=== PATIENT | female | born 1970 | race Caucasian/White ===

== ENCOUNTER 2017-03-22 16:43 | Inpatient (IN) | payer MEDICAID ==
[~2017-03-22] VITALS: Ht 152.4 cm; Wt 100.9 kg
[2017-03-22] MEDS ORDERED: MECLIZINE CHEWABLE 25 MG TAB PO ONE (17:00)
[2017-03-22 17:37] LABS: BLOOD UREA NITROGEN 29 mg/dL (7-18)
[2017-03-22] MEDS ORDERED: MECLIZINE CHEWABLE 25 MG TAB ONE ×2 (19:24→19:25)
[2017-03-22] MEDS ORDERED: SODIUM CHLORIDE 0.9% 1,000ML IVBOLUS ONE (20:00)
[2017-03-22] MEDS ORDERED: SODIUM CHLORIDE FLUSH 10ML SYR IVF ONE (20:00)
[2017-03-22 20:10] LABS: IS PT STATUS REG ER OR PRE ER? YES
[2017-03-22] MEDS ORDERED: INSU100I34 SQ (20:44)
[2017-03-22] MEDS ORDERED: ATOR40TA PO (20:44)
[2017-03-22] MEDS ORDERED: DULO60CA7 PO (20:44)
[2017-03-22] MEDS ORDERED: NAPR500T3 PO (20:44)
[2017-03-22] MEDS ORDERED: GABA300C10 PO (20:44)
[2017-03-22] MEDS ORDERED: METF10002 PO (20:44)
[2017-03-22] MEDS ORDERED: LOSA1TAB16 PO (20:44)
[2017-03-22] MEDS ORDERED: morphine SULFATE 10 MG/ML, 1ML IVPush PRN (21:30)
[2017-03-22] MEDS ORDERED: ACETAMINOPHEN 325 MG TABLET PO PRN (21:30)
[2017-03-22] MEDS ORDERED: BISACODYL 10 MG SUPP PR PRN (21:30)
[2017-03-22] MEDS ORDERED: POLYETHYLENE GLYCOL 17 GM PACKET PO PRN (21:30)
[2017-03-22] MEDS ORDERED: HYDROcodone/APAP 5/325 TABLET PO PRN (21:30)
[2017-03-22] MEDS ORDERED: DIAZEPAM 5 MG/ML, 2ML IV PRN (21:30)
[2017-03-22] MEDS ORDERED: ENALAPRILAT 1.25 MG/ML, 2ML IVPush PRN (21:30)
[2017-03-22] MEDS ORDERED: ONDANSETRON 2MG/ML, 2ML IVPush PRN (21:30)
[2017-03-22] MEDS ORDERED: DOCUSATE 100 MG CAPSULE PO PRN (21:30)
[2017-03-22] MEDS ORDERED: MECLIZINE CHEWABLE 25 MG TAB PO PRN (21:30)
[2017-03-22] MEDS ORDERED: ENOXAPARIN 40 MG/0.4 ML ONE (22:04)
[2017-03-22] MEDS: ENOXAPARIN 40 MG/0.4 ML SQ SCH (22:19)
[2017-03-22 23:55] LABS: IS PT STATUS REG ER OR PRE ER? YES
[2017-03-23] MEDS: SODIUM CHLORIDE 0.9% 1,000 ML IV SCH ×2 (04:00→23:30)
[2017-03-23 06:08] LABS: BLOOD UREA NITROGEN 24 mg/dL (7-18)
[2017-03-23 06:12] LABS: IS PT STATUS REG ER OR PRE ER? YES
[2017-03-23 07:30] VITALS: BP 147/89
[2017-03-23] MEDS: GABAPENTIN 300 MG CAPSULE PO SCH ×3 (11:08→23:36)
[2017-03-23] MEDS: DULOXETINE 30 MG CAPSULE.DR PO SCH (11:08)
[2017-03-23 11:30] VITALS: BP 147/89
[2017-03-23] MEDS ORDERED: GADOBUTROL 10 MMOL/10 ML PFS ONE (13:41)
[2017-03-23] MEDS ORDERED: NICOTINE 7 MG/24 HR PATCH.TD24 TD SCH (14:30)
[2017-03-23 15:50] VITALS: BP_SYST 141; BP_SYST 147; BP_SYST 164; BP_DIAS 108; BP_DIAS 75; BP_DIAS 98
[2017-03-23] MEDS: INSULIN ASPART 100 UNITS/ML, PEN SQ-INSULIN SCH ×2 (18:23→21:00)
[2017-03-23 19:12] VITALS: BP 144/88
[2017-03-23] MEDS ORDERED: ATORVASTATIN 40 MG TABLET PO SCH (21:00)
[2017-03-23] MEDS: MECLIZINE CHEWABLE 25 MG TAB PO SCH (23:36)
[2017-03-23] MEDS: ENOXAPARIN 40 MG/0.4 ML SQ SCH (23:37)
[2017-03-24 01:19] VITALS: BP_SYST 143; BP_SYST 151; BP_SYST 154; BP_DIAS 40; BP_DIAS 92; BP_DIAS 97
[2017-03-24 08:25] VITALS: BP_SYST 147; BP_SYST 154; BP_SYST 164; BP_DIAS 108; BP_DIAS 95; BP_DIAS 99
[2017-03-24] MEDS ORDERED: LOSARTAN 25MG TABLET PO SCH (09:00)
[2017-03-24] MEDS ORDERED: HYDROCHLOROTHIAZIDE 12.5 MG CAPSULE PO SCH (09:00)
[2017-03-24] MEDS ORDERED: MECL-85 PO (09:02)
[2017-03-24] MEDS: GABAPENTIN 300 MG CAPSULE PO SCH (10:07)
[2017-03-24] MEDS: DULOXETINE 30 MG CAPSULE.DR PO SCH (10:07)
[2017-03-24] MEDS: MECLIZINE CHEWABLE 25 MG TAB PO SCH (10:08)
[2017-03-24] MEDS: INSULIN ASPART 100 UNITS/ML, PEN SQ-INSULIN SCH (10:17)
== END 2017-03-24 13:05 | disposition home or self-care (01) | DRG 74 ==
LOC: ED 20:44 → EDIP 21:04 → 4WST 03-23 07:14 → DCLOUNGE 03-24 12:27
PROVIDERS: ADMIT Internal Medicine; ATTEND Internal Medicine
DX: G90.8 Other disorders of autonomic nervous system (principal); E44.0 Moderate protein-calorie malnutrition; Z68.41 Body mass index [BMI] 40.0-44.9, adult; R55 Syncope and collapse; R07.89 Other chest pain; E78.5 Hyperlipidemia, unspecified; I11.9 Hypertensive heart disease without heart failure; E11.42 Type 2 diabetes mellitus with diabetic polyneuropathy; E11.65 Type 2 diabetes mellitus with hyperglycemia; E03.9 Hypothyroidism, unspecified; I25.10 Atherosclerotic heart disease of native coronary artery without angina pectoris; F17.210 Nicotine dependence, cigarettes, uncomplicated; Z79.4 Long term (current) use of insulin; Z98.51 Tubal ligation status; Z88.1 Allergy status to other antibiotic agents
CPT/HCPCS: 36415; 70450; 70553; 71010; 80048; 80061; 82010; 82040; 82962; 83036; 83735; 84439; 84443; 84484; 85025; 93005; 93306; 93880; 99285; A9585; J1650; J1815; J7030

== ENCOUNTER 2017-08-01 13:18 | Inpatient (IN) | payer MEDICAID ==
[~2017-08-01] VITALS: Ht 152.4 cm; Wt 110.1 kg
[~2017-08-01 13:18] MED LIST: ATOR40TA PO; DULO60CA7 PO; GABA300C10 PO; INSU100I34 SQ; LOSA1TAB19 PO; MECL-85 PO; METF10002 PO; NAPR500T4 PO
[2017-08-01] MEDS ORDERED: SODIUM CHLORIDE 0.9% 1,000ML IVBOLUS ONE ×2 (14:00→19:30)
[2017-08-01] MEDS ORDERED: SODIUM CHLORIDE FLUSH 10ML SYR IVF ONE (14:00)
[2017-08-01] MEDS ORDERED: MORPHINE SULFATE 4 MG/ML, 1ML IVPush PRN (14:00)
[2017-08-01] MEDS ORDERED: ONDANSETRON 2MG/ML, 2ML IVPush ONE (14:00)
[2017-08-01 14:21] LABS: HEMATOCRIT 38.5 % (34.6-47.8); HEMOGLOBIN 12.7 g/dL (11.7-16.4); WHITE BLOOD COUNT 24.8 x10^3/uL (3.4-10)
[2017-08-01 14:31] LABS: BLOOD UREA NITROGEN 27 mg/dL (7-18)
[2017-08-01 14:45] LABS: DIFF TOTAL CELLS COUNTED 100 CELL DIFF
[2017-08-01] MEDS ORDERED: morphine SULFATE 10 MG/ML, 1ML ONE (14:59)
[2017-08-01] MEDS ORDERED: ONDANSETRON 2MG/ML, 2ML ONE (15:00)
[2017-08-01 15:19] LABS: VERIFY COUNTS? YES
[2017-08-01] MEDS ORDERED: CEFTRIAXONE PMX 2GM/50ML 50 ML IV ONE (16:00)
[2017-08-01] MEDS ORDERED: SODIUM CHLORIDE 0.9% 1,000 ML IV ONE (16:00)
[2017-08-01] MEDS ORDERED: CEFTRIAXONE PMX 2GM/50ML 50 ML ONE (16:19)
[2017-08-01] MEDS ORDERED: ACETAMINOPHEN 500 MG TABLET ONE (16:54)
[2017-08-01] MEDS ORDERED: ACETAMINOPHEN 500 MG TABLET PO ONE (17:00)
[2017-08-01] MEDS ORDERED: ONDANSETRON ODT 4 MG PO PRN (17:30)
[2017-08-01] MEDS ORDERED: PROMETHAZINE 25 MG/ML, 1ML IM PRN (18:00)
[2017-08-01] MEDS: CEFTRIAXONE PMX 2GM/50ML 50 ML IV SCH (18:11)
[2017-08-01 18:51] VITALS: BP 84/56
[2017-08-01] MEDS: ATORVASTATIN 40 MG TABLET PO SCH (20:24)
[2017-08-01] MEDS: SODIUM CHLORIDE 0.9% 1,000 ML IV SCH (20:24)
[2017-08-01] MEDS: HEPARIN 5,000 UNITS/ML, 1ML SQ SCH (20:24)
[2017-08-01] MEDS: GABAPENTIN 300 MG CAPSULE PO SCH (20:24)
[2017-08-01] MEDS: morphine SULFATE 10 MG/ML, 1ML IVPush PRN (20:31)
[2017-08-01 21:05] VITALS: BP 98/66
[2017-08-01] MEDS: INSULIN ASPART 100 UNITS/ML, PEN SQ-INSULIN SCH (21:23)
[2017-08-01] MEDS: INSULIN DETEMIR 100 UNITS/ML, PEN SQ-INSULIN SCH (21:23)
[2017-08-01] MEDS ORDERED: FLU VACC QS2017-18 (36MOS+) UP/PF 0.5 ML IM-VACC ONE (22:30)
[2017-08-01] MEDS ORDERED: PNEUMOCOCCAL 23 VACCINE IM-VACC ONE (22:30)
[2017-08-01 23:36] VITALS: BP 100/64
[2017-08-02 03:27] VITALS: BP 100/64
[2017-08-02 03:37] VITALS: BP 93/58
[2017-08-02] MEDS: HEPARIN 5,000 UNITS/ML, 1ML SQ SCH ×3 (04:42→17:36)
[2017-08-02] MEDS: HYDROcodone/APAP 5/325 TABLET PO PRN ×2 (04:47→09:53)
[2017-08-02] MEDS: SODIUM CHLORIDE 0.9% 1,000 ML IV SCH ×4 (06:10→21:10)
[2017-08-02 06:12] LABS: HEMATOCRIT 29.4 % (34.6-47.8)
[2017-08-02 06:22] LABS: ASPARTATE AMINO TRANSFERASE 8 U/L (15-37); BLOOD UREA NITROGEN 37 mg/dL (7-18)
[2017-08-02 06:28] LABS: DIFF TOTAL CELLS COUNTED 100 CELL DIFF
[2017-08-02 06:31] LABS: VERIFY COUNTS? YES
[2017-08-02 07:27] VITALS: BP 94/63
[2017-08-02] MEDS: DULOXETINE 30 MG CAPSULE.DR PO SCH ×2 (09:00→09:53)
[2017-08-02] MEDS: GABAPENTIN 300 MG CAPSULE PO SCH ×5 (09:00→21:00)
[2017-08-02] MEDS: INSULIN ASPART 100 UNITS/ML, PEN SQ-INSULIN SCH ×4 (09:54→22:46)
[2017-08-02] MEDS: ONDANSETRON 2MG/ML, 2ML IVPush PRN ×2 (10:04→18:24)
[2017-08-02] MEDS ORDERED: SODIUM CHLORIDE 0.9% 1,000ML IVBOLUS ONE (12:00)
[2017-08-02 15:10] VITALS: BP 98/65
[2017-08-02] MEDS: CEFTRIAXONE PMX 2GM/50ML 50 ML IV SCH (18:24)
[2017-08-02 19:44] VITALS: BP 93/56
[2017-08-02] MEDS: ATORVASTATIN 40 MG TABLET PO SCH (21:00)
[2017-08-02] MEDS: INSULIN DETEMIR 100 UNITS/ML, PEN SQ-INSULIN SCH (22:45)
[2017-08-02 23:41] VITALS: BP 91/62
[2017-08-03] MEDS: HEPARIN 5,000 UNITS/ML, 1ML SQ SCH ×3 (02:00→17:47)
[2017-08-03] MEDS: ONDANSETRON 2MG/ML, 2ML IVPush PRN (02:50)
[2017-08-03] MEDS: morphine SULFATE 10 MG/ML, 1ML IVPush PRN (02:50)
[2017-08-03] MEDS: SODIUM CHLORIDE 0.9% 1,000 ML IV SCH ×3 (03:50→19:38)
[2017-08-03 06:35] LABS: HEMATOCRIT 30.7 % (34.6-47.8); HEMOGLOBIN 10.2 g/dL (11.7-16.4); WHITE BLOOD COUNT 19.9 x10^3/uL (3.4-10)
[2017-08-03 06:45] LABS: BLOOD UREA NITROGEN 53 mg/dL (7-18)
[2017-08-03 06:55] LABS: DIFF TOTAL CELLS COUNTED 100 CELL DIFF
[2017-08-03 06:56] LABS: VERIFY COUNTS? YES
[2017-08-03] MEDS: INSULIN ASPART 100 UNITS/ML, PEN SQ-INSULIN SCH ×4 (07:00→21:32)
[2017-08-03 08:00] VITALS: BP 117/82
[2017-08-03] MEDS: DULOXETINE 30 MG CAPSULE.DR PO SCH (09:48)
[2017-08-03] MEDS: GABAPENTIN 300 MG CAPSULE PO SCH ×3 (09:48→21:29)
[2017-08-03 14:42] VITALS: BP 119/81
[2017-08-03] MEDS: CEFTRIAXONE 2 GM in DEXTROSE 5% 50 ML IV SCH (16:00)
[2017-08-03] MEDS: HYDROcodone/APAP 5/325 TABLET PO PRN (16:29)
[2017-08-03] MEDS ORDERED: SODIUM CHLORIDE 0.9% 1,000ML IVBOLUS ONE (16:30)
[2017-08-03 19:01] LABS: POTASSIUM,URINE RANDOM 34 mmol/L
[2017-08-03 19:39] VITALS: BP 121/75
[2017-08-03] MEDS: ATORVASTATIN 40 MG TABLET PO SCH (21:29)
[2017-08-03] MEDS: INSULIN DETEMIR 100 UNITS/ML, PEN SQ-INSULIN SCH (21:32)
[2017-08-04] MEDS: HEPARIN 5,000 UNITS/ML, 1ML SQ SCH ×3 (01:22→17:07)
[2017-08-04 03:19] VITALS: BP 120/78
[2017-08-04] MEDS: SODIUM CHLORIDE 0.9% 1,000 ML IV SCH ×3 (03:47→20:26)
[2017-08-04 05:28] LABS: HEMATOCRIT 27.8 % (34.6-47.8); HEMOGLOBIN 9.3 g/dL (11.7-16.4); WHITE BLOOD COUNT 16.6 x10^3/uL (3.4-10)
[2017-08-04 05:35] LABS: BLOOD UREA NITROGEN 58 mg/dL (7-18)
[2017-08-04 06:02] LABS: DIFF TOTAL CELLS COUNTED 100 CELL DIFF
[2017-08-04 06:03] LABS: VERIFY COUNTS? YES
[2017-08-04 06:04] LABS: POLYCHROMASIA 1+
[2017-08-04] MEDS ORDERED: MAGNESIUM SULFATE PMX 2GM/50ML 50 ML IV ONE (08:30)
[2017-08-04] MEDS: GABAPENTIN 300 MG CAPSULE PO SCH ×3 (08:50→21:42)
[2017-08-04] MEDS: INSULIN ASPART 100 UNITS/ML, PEN SQ-INSULIN SCH ×4 (08:50→21:43)
[2017-08-04] MEDS: DULOXETINE 30 MG CAPSULE.DR PO SCH (08:50)
[2017-08-04 09:14] VITALS: BP 127/74
[2017-08-04 13:26] VITALS: BP 110/69
[2017-08-04] MEDS ORDERED: MECLIZINE 12.5 MG TABLET PO PRN (14:00)
[2017-08-04] MEDS: CEFTRIAXONE 2 GM in DEXTROSE 5% 50 ML IV SCH (17:38)
[2017-08-04 19:29] VITALS: BP 116/74
[2017-08-04] MEDS: ATORVASTATIN 40 MG TABLET PO SCH (21:42)
[2017-08-04] MEDS: INSULIN DETEMIR 100 UNITS/ML, PEN SQ-INSULIN SCH (21:43)
[2017-08-05] MEDS: HEPARIN 5,000 UNITS/ML, 1ML SQ SCH ×3 (01:45→17:36)
[2017-08-05 02:10] VITALS: BP 128/83
[2017-08-05] MEDS: SODIUM CHLORIDE 0.9% 1,000 ML IV SCH ×2 (02:46→22:00)
[2017-08-05 05:30] LABS: HEMATOCRIT 25.8 % (34.6-47.8); HEMOGLOBIN 8.6 g/dL (11.7-16.4); WHITE BLOOD COUNT 16.7 x10^3/uL (3.4-10)
[2017-08-05 05:39] LABS: BLOOD UREA NITROGEN 55 mg/dL (7-18)
[2017-08-05] MEDS: INSULIN ASPART 100 UNITS/ML, PEN SQ-INSULIN SCH ×4 (06:42→21:38)
[2017-08-05 08:50] VITALS: BP 119/72
[2017-08-05] MEDS: DULOXETINE 30 MG CAPSULE.DR PO SCH (09:38)
[2017-08-05] MEDS: GABAPENTIN 300 MG CAPSULE PO SCH ×3 (09:38→21:38)
[2017-08-05] MEDS ORDERED: ALBUTEROL/IPRATROPIUM 2.5MG/0.5MG, 3 ML ONE (09:45)
[2017-08-05] MEDS ORDERED: ALBUMIN HUMAN 5% 250 ML IV SCH ×4 (11:30→21:00)
[2017-08-05] MEDS: ALBUTEROL/IPRATROPIUM 2.5MG/0.5MG, 3 ML NPPB SCH ×2 (15:00→20:00)
[2017-08-05 15:04] VITALS: BP 142/74
[2017-08-05] MEDS ORDERED: FUROSEMIDE 40 MG/4 ML IV ONE (15:30)
[2017-08-05] MEDS: CEFTRIAXONE 2 GM in DEXTROSE 5% 50 ML IV SCH (17:32)
[2017-08-05 19:58] VITALS: BP 128/82
[2017-08-05] MEDS: INSULIN DETEMIR 100 UNITS/ML, PEN SQ-INSULIN SCH (21:37)
[2017-08-05] MEDS: ATORVASTATIN 40 MG TABLET PO SCH (21:38)
[2017-08-05] MEDS: ALBUMIN HUMAN 5% 250 ML IV SCH (23:01)
[2017-08-06] MEDS: HEPARIN 5,000 UNITS/ML, 1ML SQ SCH ×3 (01:53→18:06)
[2017-08-06 02:00] VITALS: BP 116/78
[2017-08-06] MEDS: SODIUM CHLORIDE 0.9% 1,000 ML IV SCH (03:59)
[2017-08-06 06:55] VITALS: BP 124/77
[2017-08-06] MEDS: ALBUTEROL/IPRATROPIUM 2.5MG/0.5MG, 3 ML NPPB SCH ×4 (07:10→20:00)
[2017-08-06] MEDS: GABAPENTIN 300 MG CAPSULE PO SCH ×3 (09:02→21:13)
[2017-08-06] MEDS: DULOXETINE 30 MG CAPSULE.DR PO SCH (09:03)
[2017-08-06] MEDS: ALBUMIN HUMAN 5% 250 ML IV SCH ×2 (09:03→21:12)
[2017-08-06] MEDS: INSULIN ASPART 100 UNITS/ML, PEN SQ-INSULIN SCH ×4 (09:06→21:13)
[2017-08-06 10:07] LABS: HEMATOCRIT 24.3 % (34.6-47.8); HEMOGLOBIN 8.3 g/dL (11.7-16.4); WHITE BLOOD COUNT 17.8 x10^3/uL (3.4-10)
[2017-08-06 10:17] LABS: BLOOD UREA NITROGEN 50 mg/dL (7-18)
[2017-08-06] MEDS: MECLIZINE 12.5 MG TABLET PO PRN (13:43)
[2017-08-06 15:10] LABS: ABG COLLECTION SITE LEFT RADIAL; COLLATERAL CIRCULATION TESTING NORMAL
[2017-08-06 16:06] VITALS: BP 136/84
[2017-08-06 16:07] VITALS: BP 136/84
[2017-08-06] MEDS ORDERED: SODIUM CHLORIDE 0.9% 1,000 ML IV SCH (17:19)
[2017-08-06] MEDS: CEFTRIAXONE 2 GM in DEXTROSE 5% 50 ML IV SCH (17:29)
[2017-08-06 19:23] VITALS: BP 135/83
[2017-08-06] MEDS: DOXYCYCLINE 100MG TABLET PO SCH (21:12)
[2017-08-06] MEDS: ATORVASTATIN 40 MG TABLET PO SCH (21:13)
[2017-08-06] MEDS: INSULIN DETEMIR 100 UNITS/ML, PEN SQ-INSULIN SCH (21:14)
[2017-08-07] MEDS: HEPARIN 5,000 UNITS/ML, 1ML SQ SCH ×3 (01:37→17:48)
[2017-08-07 02:05] VITALS: BP 146/84
[2017-08-07] MEDS: ALBUTEROL/IPRATROPIUM 2.5MG/0.5MG, 3 ML NPPB SCH ×4 (07:29→19:55)
[2017-08-07] MEDS: INSULIN ASPART 100 UNITS/ML, PEN SQ-INSULIN SCH ×4 (08:13→21:38)
[2017-08-07] MEDS: DULOXETINE 30 MG CAPSULE.DR PO SCH (08:16)
[2017-08-07] MEDS: GABAPENTIN 300 MG CAPSULE PO SCH (08:16)
[2017-08-07 08:51] VITALS: BP 128/83
[2017-08-07 09:37] LABS: HEMATOCRIT 25.2 % (34.6-47.8); HEMOGLOBIN 8.4 g/dL (11.7-16.4); WHITE BLOOD COUNT 17.1 x10^3/uL (3.4-10)
[2017-08-07] MEDS: DOXYCYCLINE 100MG TABLET PO SCH ×2 (11:29→21:39)
[2017-08-07] MEDS: ALBUMIN HUMAN 5% 250 ML IV SCH ×2 (11:29→21:33)
[2017-08-07 15:44] VITALS: BP 145/81
[2017-08-07] MEDS: CEFTRIAXONE 2 GM in DEXTROSE 5% 50 ML IV SCH (18:26)
[2017-08-07 19:13] VITALS: BP 147/84
[2017-08-07] MEDS: INSULIN DETEMIR 100 UNITS/ML, PEN SQ-INSULIN SCH (21:37)
[2017-08-07] MEDS: ATORVASTATIN 40 MG TABLET PO SCH (21:42)
[2017-08-08 01:59] VITALS: BP 159/90
[2017-08-08] MEDS: HEPARIN 5,000 UNITS/ML, 1ML SQ SCH ×3 (02:23→17:43)
[2017-08-08] MEDS: ACETAMINOPHEN 325 MG TABLET PO PRN ×2 (02:23→22:39)
[2017-08-08 05:51] LABS: BLOOD UREA NITROGEN 38 mg/dL (7-18)
[2017-08-08 05:56] LABS: ASPARTATE AMINO TRANSFERASE 15 U/L (15-37)
[2017-08-08] MEDS: ALBUTEROL/IPRATROPIUM 2.5MG/0.5MG, 3 ML NPPB SCH ×4 (07:37→19:22)
[2017-08-08] MEDS: INSULIN ASPART 100 UNITS/ML, PEN SQ-INSULIN SCH ×4 (07:43→22:39)
[2017-08-08 08:34] VITALS: BP 136/78
[2017-08-08] MEDS: DOXYCYCLINE 100MG TABLET PO SCH ×2 (09:05→22:37)
[2017-08-08] MEDS: DULOXETINE 30 MG CAPSULE.DR PO SCH (09:05)
[2017-08-08 10:56] LABS: HEMATOCRIT 24.6 % (34.6-47.8); HEMOGLOBIN 8.3 g/dL (11.7-16.4)
[2017-08-08 11:15] LABS: DIFF TOTAL CELLS COUNTED 100 CELL DIFF
[2017-08-08 11:17] LABS: VERIFY COUNTS? YES
[2017-08-08 11:18] LABS: ANISOCYTOSIS 1+; POLYCHROMASIA 1+
[2017-08-08 11:21] LABS: LARGE PLATELETS 1+
[2017-08-08 15:10] VITALS: BP 161/89
[2017-08-08] MEDS: CEFTRIAXONE 2 GM in DEXTROSE 5% 50 ML IV SCH (16:21)
[2017-08-08 20:34] VITALS: BP 150/86
[2017-08-08] MEDS ORDERED: DOCUSATE 50 MG/5 ML, 10ML UDC PO SCH (21:00)
[2017-08-08] MEDS: ATORVASTATIN 40 MG TABLET PO SCH (22:37)
[2017-08-08] MEDS: INSULIN DETEMIR 100 UNITS/ML, PEN SQ-INSULIN SCH (22:38)
[2017-08-09 02:01] VITALS: BP 133/64
[2017-08-09] MEDS: HEPARIN 5,000 UNITS/ML, 1ML SQ SCH ×3 (02:24→18:27)
[2017-08-09] MEDS: ALBUTEROL/IPRATROPIUM 2.5MG/0.5MG, 3 ML NPPB SCH ×4 (06:43→19:12)
[2017-08-09 07:24] VITALS: BP 149/86
[2017-08-09] MEDS: INSULIN ASPART 100 UNITS/ML, PEN SQ-INSULIN SCH ×4 (07:37→21:11)
[2017-08-09 07:53] LABS: HEMOGLOBIN 8.8 g/dL (11.7-16.4); WHITE BLOOD COUNT 20.1 x10^3/uL (3.4-10)
[2017-08-09 08:03] LABS: BLOOD UREA NITROGEN 31 mg/dL (7-18)
[2017-08-09 08:20] LABS: DIFF TOTAL CELLS COUNTED 100 CELL DIFF
[2017-08-09 08:22] LABS: HYPOCHROMIA 1+; POLYCHROMASIA 1+; VERIFY COUNTS? YES
[2017-08-09 08:23] LABS: LARGE PLATELETS 1+
[2017-08-09] MEDS ORDERED: DOCUSATE 100 MG CAPSULE ONE (09:12)
[2017-08-09] MEDS: DOCUSATE 100 MG CAPSULE PO SCH ×2 (09:13→20:51)
[2017-08-09] MEDS: DOXYCYCLINE 100MG TABLET PO SCH ×2 (09:13→20:51)
[2017-08-09] MEDS: DULOXETINE 30 MG CAPSULE.DR PO SCH (09:13)
[2017-08-09] MEDS ORDERED: VANCOMYCIN PER PHARMACY MC PRN (13:00)
[2017-08-09 13:26] VITALS: BP 169/83
[2017-08-09] MEDS ORDERED: PHARMACOKINETIC CONSULTATION MC ONE (13:30)
[2017-08-09] MEDS ORDERED: PHARMACOKINETIC MONITORING MC PRN (13:30)
[2017-08-09] MEDS ORDERED: VANCOMYCIN 1,500 MG in SODIUM CHLORIDE 0.9% 250 ML IV ONE (14:00)
[2017-08-09] MEDS: CEFTRIAXONE 2 GM in DEXTROSE 5% 50 ML IV SCH (15:46)
[2017-08-09] MEDS: ATORVASTATIN 40 MG TABLET PO SCH (20:51)
[2017-08-09] MEDS: INSULIN DETEMIR 100 UNITS/ML, PEN SQ-INSULIN SCH (21:10)
[2017-08-09 21:26] VITALS: BP 135/81
[2017-08-10] MEDS: MAGNESIUM HYDROXIDE 8%, 30ML UDC PO PRN ×2 (00:38→21:47)
[2017-08-10] MEDS: ACETAMINOPHEN 325 MG TABLET PO PRN ×3 (00:44→21:50)
[2017-08-10] MEDS: HEPARIN 5,000 UNITS/ML, 1ML SQ SCH ×3 (02:11→16:40)
[2017-08-10 02:13] VITALS: BP 115/76
[2017-08-10 05:24] LABS: HEMATOCRIT 24.6 % (34.6-47.8); HEMOGLOBIN 8.2 g/dL (11.7-16.4); WHITE BLOOD COUNT 18.7 x10^3/uL (3.4-10)
[2017-08-10 05:28] LABS: BLOOD UREA NITROGEN 28 mg/dL (7-18)
[2017-08-10 05:49] LABS: DIFF TOTAL CELLS COUNTED 100 CELL DIFF
[2017-08-10 05:52] LABS: POIKILOCYTOSIS 1+; POLYCHROMASIA 1+; VERIFY COUNTS? YES
[2017-08-10 05:53] LABS: LARGE PLATELETS 1+
[2017-08-10 07:37] VITALS: BP 129/73
[2017-08-10] MEDS: ALBUTEROL/IPRATROPIUM 2.5MG/0.5MG, 3 ML NPPB SCH ×4 (08:30→20:23)
[2017-08-10] MEDS ORDERED: GABAPENTIN 300 MG CAPSULE PO SCH (09:00)
[2017-08-10] MEDS: DOXYCYCLINE 100MG TABLET PO SCH ×2 (09:18→21:47)
[2017-08-10] MEDS: DOCUSATE 100 MG CAPSULE PO SCH ×2 (09:18→21:46)
[2017-08-10] MEDS: DULOXETINE 30 MG CAPSULE.DR PO SCH (09:19)
[2017-08-10] MEDS: INSULIN ASPART 100 UNITS/ML, PEN SQ-INSULIN SCH ×4 (09:20→20:46)
[2017-08-10 13:13] VITALS: BP 159/91
[2017-08-10] MEDS: BISACODYL 10 MG SUPP PR PRN (13:55)
[2017-08-10] MEDS: CEFTRIAXONE 2 GM in DEXTROSE 5% 50 ML IV SCH (16:40)
[2017-08-10] MEDS ORDERED: VANCOMYCIN 1,500 MG in SODIUM CHLORIDE 0.9% 250 ML IV ONE (18:00)
[2017-08-10 18:42] VITALS: BP 128/82
[2017-08-10] MEDS: INSULIN DETEMIR 100 UNITS/ML, PEN SQ-INSULIN SCH (20:45)
[2017-08-10] MEDS: ONDANSETRON 2MG/ML, 2ML IVPush PRN (20:54)
[2017-08-10] MEDS: ATORVASTATIN 40 MG TABLET PO SCH (21:46)
[2017-08-11] MEDS: HEPARIN 5,000 UNITS/ML, 1ML SQ SCH ×3 (02:08→17:26)
[2017-08-11 03:19] VITALS: BP 136/81
[2017-08-11 05:46] LABS: HEMATOCRIT 24.4 % (34.6-47.8); HEMOGLOBIN 8.3 g/dL (11.7-16.4); WHITE BLOOD COUNT 16.9 x10^3/uL (3.4-10)
[2017-08-11 05:55] LABS: BLOOD UREA NITROGEN 22 mg/dL (7-18)
[2017-08-11 07:12] VITALS: BP 145/83
[2017-08-11] MEDS: INSULIN ASPART 100 UNITS/ML, PEN SQ-INSULIN SCH ×4 (07:53→22:17)
[2017-08-11] MEDS: ACETAMINOPHEN 325 MG TABLET PO PRN (07:55)
[2017-08-11] MEDS: ALBUTEROL/IPRATROPIUM 2.5MG/0.5MG, 3 ML NPPB SCH ×2 (08:15→11:00)
[2017-08-11] MEDS: DOCUSATE 100 MG CAPSULE PO SCH ×2 (08:44→22:17)
[2017-08-11] MEDS: DOXYCYCLINE 100MG TABLET PO SCH ×2 (08:44→22:17)
[2017-08-11] MEDS: DULOXETINE 30 MG CAPSULE.DR PO SCH (08:44)
[2017-08-11] MEDS: ONDANSETRON 2MG/ML, 2ML IVPush PRN ×2 (08:46→16:59)
[2017-08-11] MEDS: BISACODYL 10 MG SUPP PR PRN (08:55)
[2017-08-11] MEDS: GABAPENTIN 300 MG CAPSULE PO SCH ×3 (11:17→22:17)
[2017-08-11 13:47] VITALS: BP 156/87
[2017-08-11] MEDS: CEFTRIAXONE 2 GM in DEXTROSE 5% 50 ML IV SCH (17:25)
[2017-08-11 19:30] VITALS: BP 178/105
[2017-08-11] MEDS: INSULIN DETEMIR 100 UNITS/ML, PEN SQ-INSULIN SCH (22:17)
[2017-08-11] MEDS: ATORVASTATIN 40 MG TABLET PO SCH (22:17)
[2017-08-11 23:00] VITALS: BP 166/97
[2017-08-12 03:27] VITALS: BP 128/81
[2017-08-12] MEDS: HEPARIN 5,000 UNITS/ML, 1ML SQ SCH ×3 (03:30→18:02)
[2017-08-12 05:32] LABS: BLOOD UREA NITROGEN 20 mg/dL (7-18)
[2017-08-12 05:44] LABS: HEMATOCRIT 24.5 % (34.6-47.8); HEMOGLOBIN 8.2 g/dL (11.7-16.4); WHITE BLOOD COUNT 15.4 x10^3/uL (3.4-10)
[2017-08-12 07:27] VITALS: BP 133/85
[2017-08-12] MEDS: DOCUSATE 100 MG CAPSULE PO SCH ×2 (08:58→21:19)
[2017-08-12] MEDS: GABAPENTIN 300 MG CAPSULE PO SCH ×3 (08:58→21:19)
[2017-08-12] MEDS: INSULIN ASPART 100 UNITS/ML, PEN SQ-INSULIN SCH ×4 (08:58→21:19)
[2017-08-12] MEDS: DOXYCYCLINE 100MG TABLET PO SCH ×2 (08:58→21:19)
[2017-08-12] MEDS: DULOXETINE 30 MG CAPSULE.DR PO SCH (08:58)
[2017-08-12 12:57] VITALS: BP 159/96
[2017-08-12] MEDS ORDERED: ALBUTEROL/IPRATROPIUM 2.5MG/0.5MG, 3 ML NPPB PRN (15:00)
[2017-08-12] MEDS: CEFTRIAXONE 2 GM in DEXTROSE 5% 50 ML IV SCH (18:02)
[2017-08-12 20:00] VITALS: BP 163/98
[2017-08-12] MEDS: ATORVASTATIN 40 MG TABLET PO SCH (21:19)
[2017-08-12] MEDS: INSULIN DETEMIR 100 UNITS/ML, PEN SQ-INSULIN SCH (21:19)
[2017-08-13] MEDS: HEPARIN 5,000 UNITS/ML, 1ML SQ SCH ×3 (02:30→17:09)
[2017-08-13 02:31] VITALS: BP 134/86
[2017-08-13 05:47] LABS: HEMATOCRIT 25.3 % (34.6-47.8); HEMOGLOBIN 8.5 g/dL (11.7-16.4)
[2017-08-13 05:53] LABS: BLOOD UREA NITROGEN 22 mg/dL (7-18)
[2017-08-13 07:22] VITALS: BP 135/81
[2017-08-13] MEDS: DOXYCYCLINE 100MG TABLET PO SCH ×2 (08:05→20:07)
[2017-08-13] MEDS: INSULIN ASPART 100 UNITS/ML, PEN SQ-INSULIN SCH ×4 (08:05→21:46)
[2017-08-13] MEDS: DULOXETINE 30 MG CAPSULE.DR PO SCH (08:05)
[2017-08-13] MEDS: DOCUSATE 100 MG CAPSULE PO SCH ×2 (08:05→20:05)
[2017-08-13] MEDS: GABAPENTIN 300 MG CAPSULE PO SCH ×3 (08:05→20:05)
[2017-08-13 12:47] VITALS: BP 155/91
[2017-08-13] MEDS: CEFTRIAXONE 2 GM in DEXTROSE 5% 50 ML IV SCH (17:11)
[2017-08-13 20:00] VITALS: BP 160/96
[2017-08-13] MEDS: MECLIZINE 12.5 MG TABLET PO PRN (20:06)
[2017-08-13] MEDS: ACETAMINOPHEN 325 MG TABLET PO PRN (20:06)
[2017-08-13] MEDS: ATORVASTATIN 40 MG TABLET PO SCH (20:07)
[2017-08-13] MEDS: INSULIN DETEMIR 100 UNITS/ML, PEN SQ-INSULIN SCH (21:47)
[2017-08-14] MEDS: HEPARIN 5,000 UNITS/ML, 1ML SQ SCH ×3 (02:31→18:00)
[2017-08-14 02:40] VITALS: BP 119/78
[2017-08-14 05:30] LABS: HEMATOCRIT 24.6 % (34.6-47.8); HEMOGLOBIN 8.3 g/dL (11.7-16.4); WHITE BLOOD COUNT 11.4 x10^3/uL (3.4-10)
[2017-08-14 05:35] LABS: BLOOD UREA NITROGEN 24 mg/dL (7-18)
[2017-08-14] MEDS: ACETAMINOPHEN 325 MG TABLET PO PRN (06:34)
[2017-08-14] MEDS: GABAPENTIN 300 MG CAPSULE PO SCH ×3 (06:34→16:22)
[2017-08-14 06:42] VITALS: BP 162/95
[2017-08-14] MEDS: DULOXETINE 30 MG CAPSULE.DR PO SCH (08:26)
[2017-08-14] MEDS: INSULIN ASPART 100 UNITS/ML, PEN SQ-INSULIN SCH ×3 (08:26→17:11)
[2017-08-14] MEDS: DOXYCYCLINE 100MG TABLET PO SCH (08:27)
[2017-08-14] MEDS: DOCUSATE 100 MG CAPSULE PO SCH (08:27)
[2017-08-14] MEDS: CEFTRIAXONE 2 GM in DEXTROSE 5% 50 ML IV SCH (16:22)
[2017-08-14 18:51] VITALS: BP 152/90
== END 2017-08-14 19:13 | disposition home or self-care (01) | DRG 871 ==
LOC: ED 15:23 → EDIP 16:36 → 4NOR 18:32
PROVIDERS: ADMIT Hospitalist; ATTEND Family Medicine
PROC: 3E0234Z Introduction of Serum, Toxoid and Vaccine into Muscle, Percutaneous Approach (ICD-10-PCS; principal; 2017-08-01)
DX: A41.9 Sepsis, unspecified organism (principal); E43 Unspecified severe protein-calorie malnutrition; N17.0 Acute kidney failure with tubular necrosis; E87.2 Acidosis; E11.42 Type 2 diabetes mellitus with diabetic polyneuropathy; J18.1 Lobar pneumonia, unspecified organism; N10 Acute pyelonephritis; E87.1 Hypo-osmolality and hyponatremia; Z68.42 Body mass index [BMI] 45.0-49.9, adult; R65.20 Severe sepsis without septic shock; F17.210 Nicotine dependence, cigarettes, uncomplicated; B96.20 Unspecified Escherichia coli [E. coli] as the cause of diseases classified elsewhere; D64.9 Anemia, unspecified; E11.65 Type 2 diabetes mellitus with hyperglycemia; E78.5 Hyperlipidemia, unspecified; K59.00 Constipation, unspecified; R30.9 Painful micturition, unspecified; G47.33 Obstructive sleep apnea (adult) (pediatric); I10 Essential (primary) hypertension; Z79.4 Long term (current) use of insulin; Z79.899 Other long term (current) drug therapy; Z82.3 Family history of stroke; Z83.3 Family history of diabetes mellitus; Z91.14 Patient's other noncompliance with medication regimen; Z88.1 Allergy status to other antibiotic agents; Z98.51 Tubal ligation status; Z23 Encounter for immunization
CPT/HCPCS: 36415; 36600; 70450; 71010; 74000; 76700; 76770; 80048; 80053; 80202; 81001; 81050; 82040; 82140; 82436; 82570; 82803; 82962; 83036; 83605; 83735; 83935; 84100; 84133; 84145; 84156; 84300; 84703; 85025; 87040; 87077; 87086; 87186; 90686; 90732; 93005; 93306; 94640; 96361; 96365; 96375; J0696; J1644; J1815; J1940; J2405; J2550; J3370; J7620; P9041; P9045; J2270; J3475; J7030; J7050